=== PATIENT | male | born 1960 | race Caucasian/White ===

== ENCOUNTER 2021-08-21 16:38 | Inpatient (IN) | payer BC, OTHER ==
[2021-08-21 19:46] LABS: BASO % 1.3 % (0-2.0); HEMATOCRIT 40.2 % (35.4-49); HEMOGLOBIN 13.8 GM/dL (11.7-16.9); MCHC 34.3 g/dl (32.0-35.9); MEAN CELL VOLUME 96.4 fl (80-96); MEAN PLT VOLUME 7.1 fl (7.5-11.1); MONO % 9.8 % (3.8-10.2); NEUT % 70.9 % (42.8-82.8); PLATELET COUNT 175 10^3/uL (134-434); RBC 4.17 M/mm3 (4.00-5.60); WHITE BLOOD COUNT 8.1 K/mm3 (4.0-10.0)
[2021-08-21 19:54] LABS: INR 1.44 (0.83-1.09); PROTHROMBIN TIME (PATIENT) 17.8 SEC (9.7-13.0)
[2021-08-21 19:56] LABS: EPI CELLS 3 /uL (0-25.1); HYALINE CASTS 1 /uL (0-3.1); PH,URINE 5.5 (5.0-8.0); URINE APPEARANCE CLEAR; URINE BACTERIA 41 /uL (0-1359); URINE BILIRUBIN 1+ (NEGATIVE); URINE COLOR DK YELLOW; URINE GLUCOSE (UA) NEGATIVE (NEGATIVE); URINE KETONE TRACE (NEGATIVE); URINE LEUK ESTERASE TRACE (NEGATIVE); URINE NITRITE NEGATIVE (NEGATIVE); URINE PROTEIN NEGATIVE (NEGATIVE); URINE RBC 8 /uL (0-23.9); URINE WBC 5 /uL (0-25.8)
[2021-08-21 19:57] LABS: ACTIVATED PTT 33.2 SECONDS (25.2-36.5)
[2021-08-21 20:11] LABS: ALBUMIN 2.8 g/dl (3.4-5.0); CALCIUM 8.4 mg/dL (8.5-10.1)
[2021-08-21 20:12] LABS: MAGNESIUM 2.3 mg/dL (1.8-2.4)
[2021-08-21 20:15] LABS: CREATININE 0.6 mg/dL (0.55-1.3)
[2021-08-21 20:16] LABS: BILIRUBIN,TOTAL 2.3 mg/dL (0.2-1); TOT PROT 7.4 g/dl (6.4-8.2)
[2021-08-21 20:28] LABS: N-TERMINAL BNP 95.3 pg/ml (5-125)
[2021-08-21] MEDS ORDERED: POTASSIUM CHLORIDE TABS 20 MEQ TABLET.ER (FP) PO ONE ×2 (21:38→22:03)
[2021-08-21] MEDS ORDERED: ACETAMINOPHEN 1000 MG/100 ML VIAL (NON FORMULARY) IVPB ONE (21:38)
[2021-08-21] MEDS ORDERED: ACETAMINOPHEN INJECTION 100 ML IVPB ONE (22:04)
[2021-08-21] MEDS ORDERED: LORazepam 2 MG TABLET PO PRN (23:24)
[2021-08-21] MEDS ORDERED: LORazepam 1 MG TABLET PO PRN (23:33)
[2021-08-22] MEDS ORDERED: KCL 10 MEQ IVPB 10 MEQ/100 ML INFUS.BAG IVPB ONE (00:08)
[2021-08-22] MEDS: KCL 10 MEQ IVPB 10 MEQ/100 ML INFUS.BAG IVPB SCH ×2 (00:17→02:39)
[2021-08-22] MEDS ORDERED: THIAMINE HCL 200 MG/2 ML VIAL IVPB ONE (02:16)
[2021-08-22 03:10] VITALS: BMI 25.0
[2021-08-22] MEDS ORDERED: PNEUMOC 13-VAL CONJ-DIP CRM/PF 0.5 ML DISP.SYRIN IM ONE (03:10)
[2021-08-22] MEDS ORDERED: SODIUM CHLORIDE 1,000 ML IV SCH (08:00)
[2021-08-22] MEDS: MULTIVIT-MINERALS ORAL LIQUID PO SCH ×2 (08:46→09:54)
[2021-08-22 09:08] LABS: HEMATOCRIT 39.8 % (35.4-49); HEMOGLOBIN 13.7 GM/dL (11.7-16.9); MCH 33.3 pg (25.7-33.7); MCHC 34.3 g/dl (32.0-35.9); MEAN PLT VOLUME 7.6 fl (7.5-11.1); PLATELET COUNT 168 10^3/uL (134-434); RBC 4.11 M/mm3 (4.00-5.60); RDW 13.8 % (11.9-15.9); WHITE BLOOD COUNT 6.5 K/mm3 (4.0-10.0)
[2021-08-22 09:16] LABS: INR 1.54 (0.83-1.09)
[2021-08-22 09:38] LABS: ALBUMIN 2.5 g/dl (3.4-5.0); BLOOD UREA NITROGEN 5.2 mg/dL (7-18); MAGNESIUM 2.4 mg/dL (1.8-2.4)
[2021-08-22 09:40] LABS: CHOLESTEROL 127 mg/dL (50-200)
[2021-08-22 09:41] LABS: CREATININE 0.5 mg/dL (0.55-1.3); LDL CHOLESTEROL (ONLY SJRH) 63 mg/dL (5-100); PHOSPHOROUS 2.9 mg/dL (2.5-4.9)
[2021-08-22 09:42] LABS: BILIRUBIN,TOTAL 2.7 mg/dL (0.2-1); TOT PROT 6.8 g/dl (6.4-8.2)
[2021-08-22 09:44] LABS: HDL CHOLESTEROL 53 mg/dL (40-60); TRIGLYCERIDES 70 mg/dL (0-150)
[2021-08-22] MEDS ORDERED: PNEUMOCOCCAL 23 VACCINE 0.5 ML VIAL IM ONE (10:00)
[2021-08-22 18:36] VITALS: TEMP 98.8
[2021-08-22 20:00] VITALS: BP 116/74; PULSE 84
== END 2021-08-22 20:23 | disposition short-term general hospital (02) | DRG 433 ==
LOC: JER 16:38 → JERBED 20:20 → J5S 08-22 01:38
PROVIDERS: ADMIT Internal Medicine; ATTEND Internal Medicine
DX: K70.31 Alcoholic cirrhosis of liver with ascites (principal); E87.1 Hypo-osmolality and hyponatremia; E87.6 Hypokalemia; K42.9 Umbilical hernia without obstruction or gangrene; R21 Rash and other nonspecific skin eruption; K76.0 Fatty (change of) liver, not elsewhere classified; R94.5 Abnormal results of liver function studies; R16.2 Hepatomegaly with splenomegaly, not elsewhere classified; K40.90 Unilateral inguinal hernia, without obstruction or gangrene, not specified as recurrent; N43.3 Hydrocele, unspecified; R59.0 Localized enlarged lymph nodes
CPT/HCPCS: 36415; 71045-TC-FY; 74177-TC; 76700-TC; 76870-TC; 80053; 80061; 81003; 82140; 82248; 83036; 83605; 83615; 83735; 83880; 84100; 85025; 85027; 85610; 85730; 86705; 86706; 86708; 86803; 86850; 86900; 86901; 87324; 87449; 87517; 90732; 93005; 93010; 99285-25; C9803; G0009; J0131; Q9967; U0003; U0005